=== PATIENT | female | born 1995 | race Caucasian/White ===

== ENCOUNTER → 2018-07-30 | Outpatient (CLI) | payer SELFPAY ==
[~2018-07-30] MED LIST: ALBU2.5V36 INH; AZIT-18 PO; ONDA4TAB97 PO
== END ==
LOC: US 01:39
PROVIDERS: ATTEND Internal Medicine
DX: I51.7 Cardiomegaly (principal); I34.0 Nonrheumatic mitral (valve) insufficiency; I27.20 Pulmonary hypertension, unspecified; I35.1 Nonrheumatic aortic (valve) insufficiency; I71.4 Abdominal aortic aneurysm, without rupture
CPT/HCPCS: 93306